=== PATIENT | male | born 1955 | race Caucasian/White ===

== ENCOUNTER 2020-08-07 01:03 | Observation (INO) | payer MEDICARE, OTHER ==
[2020-08-07 01:54] LABS: Basophils # (A) 0.1 k/uL (0-0.2); Basophils % (A) 1 %; Eosinophils # (A) 0.4 k/uL (0-0.7); Eosinophils % (A) 4 %; HCT 45.3 % (39.0-53.0); HGB 14.4 gm/dL (13.0-17.5); Lymphocytes # (A) 2.9 k/uL (1.0-4.8); Lymphocytes % (A) 30 %; MCH 30.5 pg (25.0-35.0); MCHC 31.8 g/dL (31.0-37.0); MCV 95.8 fL (80.0-100.0); Mean Platelet Volume 8.4; Monocytes # (A) 0.7 k/uL (0-1.0); Monocytes % (A) 8 %; Neutrophils # (A) 5.2 k/uL (1.3-7.7); Neutrophils % (A) 55 %; Platelet Count 248 k/uL (150-450); RBC 4.72 m/uL (4.30-5.90); RDW 12.8 % (11.5-15.5); WBC 9.4 k/uL (3.8-10.6)
[2020-08-07 02:11] LABS: Partial Thromboplastin Time 26.3 sec (22.0-30.0)
[2020-08-07 02:13] LABS: ALT 18 U/L (4-49); AST 21 U/L (17-59); African American GFR (CKD) >90 (>60 ml/min/1.73 sqM); Alkaline Phosphatase 51 U/L (38-126); Anion Gap 8 mmol/L; Blood Urea Nitrogen 24 mg/dL (9-20); Calcium 9.5 mg/dL (8.4-10.2); Carbon Dioxide 29 mmol/L (22-30); Chloride 101 mmol/L (98-107); Glucose 125 mg/dL (74-99); Magnesium 1.9 mg/dL (1.6-2.3); Non-African American GFR(CKD) 79 (>60 ml/min/1.73 sqM); Potassium 3.9 mmol/L (3.5-5.1); Sodium 138 mmol/L (137-145); Total Bilirubin 0.4 mg/dL (0.2-1.3)
--- NOTE | 2020-08-07 02:19 | ED ---
Chest Pain HPI - General Chief Complaint: Chest Pain Stated Complaint: Chest Pain Time Seen by Provider: 08/07/20 01:36 Source: patient Mode of arrival: wheelchair Limitations: no limitations - History of Present Illness Initial Comments: Rambo is a previously healthy 65-year-old male who presents the ER today via private vehicle for evaluation of retrosternal chest pain that woke him from sleep. Patient denies any cardiac history he has no history of hypertension, hyperlipidemia, diabetes, no family history of heart disease, he was a smoker but quit over 35 years ago. Patient reports that he was in his usual state of health throughout the day yesterday he went to bed at his usual time. He states that he woke from sleep with a stabbing retrosternal chest pain. Pain is not associated with any nausea or vomiting. He did have some shortness of breath but no diaphoresis or lightheadedness. His encouraged him to come to the ER for further evaluation. - Related Data Allergies Allergy/AdvReac Type Severity Reaction Status Date / Time No Known Allergies Allergy Verified 08/07/20 01:14 Review of Systems ROS Statement: Those systems with pertinent positive or pertinent negative responses have been documented in the HPI. ROS Other: All systems not noted in ROS Statement are negative. EKG Findings - EKG Comments: EKG Findings:: EKG was obtained due to complaint of chest pain, EKG was obtained at 1:24 AM, rate is 72, rhythm is sinus with frequent consecutive PVCs, [place] 174 QRS 104 QTc 444 there appears to be hyperacute T waves in V2 and 3 and 4, no acute ST elevations or depressions no evidence of acute infarction. Past Medical History Past Medical History: No Reported History History of Any Multi-Drug Resistant Organisms: None Reported Past Surgical History: Hernia Repair Past Psychological History: No Psychological Hx Reported Smoking Status: Never smoker Past Alcohol Use History: None Reported Past Drug Use History: None Reported General Exam - General Exam Comments Initial Comments: Physical Exam GENERAL: Patient is well-developed and well-nourished. Patient is nontoxic and well- hydrated and is in no distress. HENT: Normocephalic, Atraumatic. EYES: PERRL, EOMI PULMONARY: Unlabored respirations. No audible rales rhonchi or wheezing was noted. CARDIOVASCULAR: There is a regular rate and rhythm without any murmurs gallops or rubs. ABDOMEN: Soft and nontender with normal bowel sounds. SKIN: Skin is clear with no lesions or rashes and otherwise unremarkable. : Deferred NEUROLOGIC: Patient is alert and oriented x3. Moving all extremities spontaneously MUSCULOSKELETAL: Normal extremities with adequate strength and full range of motion. No lower ex tremity swelling or edema. No calf tenderness. PSYCHIATRIC: Normal psychiatric evaluation. Limitations: no limitations Course Vital Signs 08/07/20 08/07/20 08/07/20 01:10 01:46 03:16 Temperature 98.2 F 98.2 F Pulse Rate 53 L 65 70 Respiratory 19 16 14 Rate Blood Pressure 151/64 141/76 129/74 O2 Sat by Pulse 99 98 Oximetry Chest Pain MDM - MDM The patient was seen and evaluated history is obtained from the patient This 65-year-old gentleman his only risk factor for cardiac disease is age and gender, worsening with retrosternal chest pain and an EKG to has hyperacute T waves and frequent ectopy Patient had ASA prior to arrival Labs and chest x-ray were obtained and resulted with no significant abnormalities however given the patient's age gender and abnormal EKG I do feel he warrants admission to the hospital for further evaluation and possible acute coronary syndrome. Patient is agreeable with this plan. Disposition Clinical Impression: Chest pain Disposition: ADMITTED IP TO THIS HOSP Condition: Stable Is patient prescribed a controlled substance at d/c from ED?: No
[2020-08-07] MEDS ORDERED: HEPARIN SODIUM,PORCINE 5,000 UNIT/ML 1 ML VIAL IV PRN (02:24)
[2020-08-07] MEDS ORDERED: HEPARIN SODIUM,PORCINE 5,000 UNIT/ML 1 ML VIAL IV ONE (02:24)
[2020-08-07] MEDS ORDERED: HEPARIN SOD,PORK IN 0.45% NACL 25,000 UNIT in 0.45% NACL 1 250ML.BAG IV SCH (02:30)
--- NOTE | 2020-08-07 02:31 | XR ---
EXAMINATION TYPE: XR chest 2V DATE OF EXAM: 08/07/2020 COMPARISON: NONE HISTORY: Chest pain TECHNIQUE: 2 views FINDINGS: Heart and mediastinum are normal. Lungs are clear. Diaphragm is normal. There are chest lety ds. Bony thorax is intact. IMPRESSION: Normal chest.
[2020-08-07] MEDS: NITROGLYCERIN OINT 1 INCH/GM PACKET TOPICAL SCH ×4 (03:16→17:55)
[2020-08-07] MEDS: ATORVASTATIN 80 MG TAB PO SCH (08:34)
--- NOTE | 2020-08-07 11:31 | P.HPIM ---
History of Present Illness Chief Complaint: Chest pain Lm is a healthy 65-year-old white male with no medications or known medical problems. He said he awoke with chest pressure midsternal last night. He says the pain was nonradiating. [place] pressure-like. He denied any significant shortness of breath, nausea, vomiting, diarrhea, constipation issues. He has no strong family cardiac disease and he quit smoking 30+ years ago. EKG findings in the emergency room showed sinus bradycardia with occasional PVCs and PACs. This a.m., he denies chest pains only with deeper inspiration. He has a nitroglycerin patch in place. Review of Systems All systems: negative Past Medical History Past Medical History: No Reported History History of Any Multi-Drug Resistant Organisms: None Reported Past Surgical History: Hernia Repair Additional Past Surgical History / Comment(s): gallbladder surgery, sinus surgery, carpal tunnel Past Anesthesia/Blood Transfusion Reactions: No Reported Reaction Past Psychological History: No Psychological Hx Reported Smoking Status: Never smoker Past Alcohol Use History: None Reported Past Drug Use History: None Reported - Past Family History Father Family Medical History: Cancer Additional Family Medical History / Comment(s): lung ca Medications and Allergies Allergies Allergy/AdvReac Type Severity Reaction Status Date / Time No Known Allergies Allergy Verified 08/07/20 01:14 Physical Exam Vitals: Vital Signs Temp Pulse Pulse Resp BP BP Pulse Ox 08/07/20 09:00 98.8 F 64 16 98/58 96 08/07/20 03:18 97.9 F 63 18 124/64 96 08/07/20 03:16 98.2 F 70 14 129/74 98 08/07/20 01:46 65 16 141/76 08/07/20 01:10 98.2 F 53 L 19 151/64 99 Intake and Output 08/06/20 08/07/20 08/07/20 22:59 06:59 14:59 Other: # Voids 0 Weight 80.739 kg GENERAL: Well-appearing, well-nourished and in no acute distress. HEAD: Atraumatic, normocephalic. EYES: Pupils equal round and reactive to light, extraocular movements intact, sclera anicteric, conjunctiva are normal. ENT:nares patent, oropharynx clear without exudates. Moist mucous membranes. NECK: Normal range of motion, supple without lymphadenopathy or JVD, no thyromegaly LUNGS: Breath sounds show minimal crackles right base, no wheezes or rhonchi noted. HEART: Regular rate and rhythm without murmurs, rubs or gallops.S1S2 Normal ABDOMEN: Soft, nontender, normoactive bowel sounds. No guarding, no rebound. No masses appreciated. EXTREMITIES: Normal range of motion, no pitting or edema. No clubbing or c yanosis. NEUROLOGICAL: Cranial nerves II through XII grossly intact. Normal speech, normal gait. PSYCH: Normal mood, normal affect. SKIN: Warm, Dry, normal turgor, no rashes or lesions noted. Results CBC & Chem 7: 08/07/20 01:39 08/07/20 01:39 Labs: Abnormal Lab Results - Last 24 Hours (Table) 08/07/20 08/07/20 Range/Units 01:39 09:37 APTT 53.4 H (22.0-30.0) sec BUN 24 H (9-20) mg/dL Glucose 125 H (74-99) mg/dL Chest x-ray: report reviewed Thrombosis Risk Factor Assmnt - DVT/VTE Prophylaxis DVT/VTE Prophylaxis: Pharmacologic Prophylaxis ordered - Choose All That Apply Any of the Below Risk Factors Present?: No Other Risk Factors: Yes Each Risk Factor Represents 2 Points: Age 61-74 years Other congenital or acquired thrombophilia - If yes, enter type in comment: No Thrombosis Risk Factor Assessment Total Risk Factor Score: 2 Thrombosis Risk Factor Assessment Level: Low Risk Assessment and Plan (1) Abnormal EKG Current Visit: Yes Status: Acute Code(s): R94.31 - ABNORMAL ELECTROCARDIOGRAM [ECG] [EKG] SNOMED Code(s): 599039892 (2) Elevated glucose Current Visit: Yes Status: Acute Code(s): R73.09 - OTHER ABNORMAL GLUCOSE SNOMED Code(s): 15139483 (3) Abnormal lung sounds Current Visit: Yes Status: Acute Code(s): R09.89 - OTH SYMPTOMS AND SIGNS INVOLVING THE CIRC AND RESP SYSTEMS SNOMED Code(s): 35956553498369 (4) Chest pain Current Visit: Yes Status: Acute Code(s): R07.9 - CHEST PAIN, UNSPECIFIED SNOMED Code(s): 81970799 Plan: We will consult cardiology. Repeat chest x-ray. Check hemoglobin A1c regarding his elevated sugar, check a TSH, Most likely the stress test is ordered would not be completed until tomorrow, I'll reorder laboratory studies for the a.m., but if cardiology clears him he may be discharged with planned outpatient follow-up depending on how he is feeling. He will be reevaluated next 24 hours if he is not cleared by cardiology.
--- NOTE | 2020-08-07 12:55 | XR ---
EXAMINATION TYPE: XR chest 2V DATE OF EXAM: 08/07/2020 COMPARISON: 08/07/2020 HISTORY: 65-year-old male right base abnormal lung sounds, chest pain. TECHNIQUE: Frontal and lateral views FINDINGS: The cardiomediastinal silhouette, aorta, and pulmonary vasculature are within normal limits. Lungs an d pleural spaces are clear. IMPRESSION: No acute cardiopulmonary process.
[2020-08-07] MEDS ORDERED: CAFFEINE CITRATE 60 MG/3 ML VIAL IV PRN (14:39)
[2020-08-07] MEDS ORDERED: REGADENOSON 0.4 MG/5 ML SYRINGE IV ONE (14:39)
[2020-08-07] MEDS ORDERED: AMINOPHYLLINE 500 MG/20 ML VIAL IV PRN (14:39)
--- NOTE | 2020-08-07 14:39 | P.CRDCN ---
History of Present Illness Consult date: 08/07/20 Consult reason: chest pain History of present illness: HISTORY OF PRESENTING ILLNESS This is a pleasant 65-year-old male without any prior medical history who presents secondary to chest pain which occurred last night. He admits that it initially felt like a pressure which did improve when he received nitroglycerin and Nitropaste in the emergency department. It has since changed to a discomfort mainly when he takes a deep breath in. No recent fevers, chills, cough. He denies any prior similar episodes. He was concerned due to chest mary n and therefore presented to the emergency department. No associated nausea, diaphoresis or shortness breath. He denies any history of stroke, TIA, heart murmur. He has not seen a engraver copperplate and does not believe he has had prior cardiac workup. No history of heart catheterization. He does not smoke. 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 He does go on walks and bike rides with his . He was placed on a heparin drip for apparent hyperacute T waves by the emergency department. He states that normally his cholesterol is well controlled when he gets it checked by his primary care doctor. Currently he denies any chest pain. DIAGNOSTICS EKG reveals sinus rhythm with frequent PACs, normal axis, no significant ST or T-wave abnormalities Chest xray no acute process. Laboratory reviewed, white blood cell count 9.4, hemoglobin 14.4, platelets 248, creatinine 1.0, troponin negative 3, proBNP 31, TSH 4.48. Current cardiac medications include aspirin 325 mg daily, Lipitor 80 mg daily. REVIEW OF SYSTEMS At the time of my exam: CONSTITUTIONAL: Denies fever or chills. CARDIOVASCULAR: +chest pain, no shortness of breath, orthopnea, PND or palpitations. RESPIRATORY: Denies cough. GASTROINTESTINAL: Denies abdominal pain, diarrhea, constipation, nausea or vomiting. MUSCULOSKELETAL: Denies myalgias. NEUROLOGIC: Denies numbness, tingling or weakness. ENDOCRINE: Denies fatigue, weight change, polydipsia or polyurina. GENITOURINARY: Denies burning, hematuria or urgency with micturation. HEMATOLOGIC: Denies history of anemia or bleeding. PHYSICAL EXAMINATION Blood pressure 98/58 heart rate 64 afebrile and maintaining oxygen saturation on room air. CONSTITUTIONAL: No apparent distress. HEENT: Head is normocephalic. Pupils are equal, round. Sclerae anicteric. Mucous membranes of the mouth are moist. No JVD. + Bilateral carotid bruit. CHEST EXAMINATION: Lungs are clear to auscultation. No chest wall tenderness is noted on palpation or with deep breathing. HEART EXAMINATION: Regular rate and rhythm. Occasional PACs, ? Split S2, +3/6 systolic murmur mainly at the left upper sternal border, no gallops or rub. ABDOMEN: Soft, nontender. Positive bowel sounds. EXTREMITIES: 2+ peripheral pulses, no lower extremity edema and no calf tenderness. NEUROLOGIC EXAMINATION: Patient is awake, alert and oriented x3. ASSESSMENT 1. Atypical chest pain, however initially improved with nitroglycerin. Since the ER however it seems more pleuritic worsening with deep breaths in. Troponin negative 3. 2. Systolic murmur 3. Bilateral carotid bruit 4. PACs PLAN We discussed options and patient would like to stay and have a stress test performed. We will check a nuclear stress test as he is getting pain with any deep inspirations and do not feel he could reach target heart rate on a treadmill. Additionally we will check a 2-D echo to evaluate murmur. Also patient has bilateral carotid bruit and we will check that if able in the hospital however this may be performed on an outpatient basis. Past Medical History Past Medical History: No Reported History History of Any Multi-Drug Resistant Organisms: None Reported Past Surgical History: Hernia Repair Additional Past Surgical History / Comment(s): gallbladder surgery, sinus surgery, carpal tunnel Past Anesthesia/Blood Transfusion Reactions: No Reported Reaction Past Psychological History: No Psychological Hx Reported Smoking Status: Never smoker Past Alcohol Use History: None Reported Past Drug Use History: None Reported - Past Family History Father Family Medical History: Cancer Additional Family Medical History / Comment(s): lung ca Medications and Allergies Home Medications Medication Instructions Recorded Confirmed Type No Known Home Medications 08/07/20 08/07/20 History Allergies Allergy/AdvReac Type Severity Reaction Status Date / Time No Known Allergies Allergy Verified 08/07/20 12:18 Physical Exam Vitals: Vital Signs Temp Pulse Pulse Resp BP BP Pulse Ox 08/07/20 09:00 98.8 F 64 16 98/58 96 08/07/20 03:18 97.9 F 63 18 124/64 96 08/07/20 03:16 98.2 F 70 14 129/74 98 08/07/20 01:46 65 16 141/76 08/07/20 01:10 98.2 F 53 L 19 151/64 99 Intake and Output 08/06/20 08/07/20 08/07/20 22:59 06:59 14:59 Intake Total 500 Balance 500 Intake: Oral 500 Other: # Voids 0 2 Weight 80.739 kg Results 08/07/20 01:39 08/07/20 01:39 Cardiac Enzymes 08/07/20 08/07/20 08/07/20 Range/Units 01:39 01:39 05:23 AST 21 (17-59) U/L Troponin I <0.012 <0.012 (0.000-0.034) ng/mL 08/07/20 Range/Units 09:37 AST (17-59) U/L Troponin I <0.012 (0.000-0.034) ng/mL Coagulation 08/07/20 08/07/20 Range/Units 01:39 09:37 PT 10.0 (9.0-12.0) sec APTT 26.3 53.4 H (22.0-30.0) sec CBC 08/07/20 Range/Units 01:39 WBC 9.4 (3.8-10.6) k/uL RBC 4.72 (4.30-5.90) m/uL Hgb 14.4 (13.0-17.5) gm/dL Hct 45.3 (39.0-53.0) % Plt Count 248 (150-450) k/uL Comprehensive Metabolic Panel 08/07/20 Range/Units 01:39 Sodium 138 (137-145) mmol/L Potassium 3.9 (3.5-5.1) mmol/L Chloride 101 (98-107) mmol/L Carbon Dioxide 29 (22-30) mmol/L BUN 24 H (9-20) mg/dL Creatinine 1.00 (0.66-1.25) mg/dL Glucose 125 H (74-99) mg/dL Calcium 9.5 (8.4-10.2) mg/dL AST 21 (17-59) U/L ALT 18 (4-49) U/L Alkaline Phosphatase 51 (38-126) U/L Total Protein 7.0 (6.3-8.2) g/dL Albumin 4.0 (3.5-5.0) g/dL Current Medications Generic Name Dose Route Start Last Admin Trade Name Ziyad PRN Reason Stop Dose Admin Aspirin 325 mg 08/08/20 09:00 Aspirin PO DAILY [facility] Atorvastatin Calcium 80 mg 08/07/20 09:00 08/07/20 08:34 Lipitor PO 80 mg DAILY CATRACHITO Administration Heparin Sodium (Porcine) 0 unit 08/07/20 02:24 Heparin IV PER PROTOCOL PRN Low PTT Protocol Nitroglycerin 1 inch 08/07/20 03:00 08/07/20 06:56 Nitro-Bid Oint TOPICAL Not Given Q6HR CATRACHITO Intake and Output 08/06/20 08/07/20 08/07/20 22:59 06:59 14:59 Intake Total 500 Balance 500 Intake: Oral 500 Other: # Voids 0 2 Weight 80.739 kg 08/07/20 01:39 08/07/20 01:39
--- NOTE | 2020-08-07 15:24 | US ---
EXAMINATION TYPE: US carotid duplex BILAT DATE OF EXAM: 08/07/2020 COMPARISON: NONE CLINICAL HISTORY: 65-year-old male bilateral carotid bruit. Chest pain. TECHNIQUE: Carotid duplex ultrasound examination. Indirect Doppler criteria was utilized. FINDINGS: EXAM MEASUREMENTS: RIGHT: Peak Systolic Velocity (PSV) cm/sec ----- Right CCA: 92.4 ----- Right ICA: 145.1 ----- Right ECA: 176.5 ICA/CCA ratio: 1.6 RIGHT: End Diastole cm/sec ----- Right CCA: 23.8 ----- Right ICA: 18.9 ----- Right ECA: 0 LEFT: Peak Systolic Velocity (PSV) cm/sec ----- Left CCA: 105.6 ----- Left ICA: 119.4 ----- Left ECA: 119.4 ICA/CCA ratio: 1.1 LEFT: End Diastole cm/sec ----- Left CCA: 16.9 ----- Left ICA: 36.6 ----- Left ECA: 0 VERTEBRALS (direction of flow): Right Vertebral: Antegrade Left Vertebral: Antegrade Rhythm: Normal No significant stenosis seen IMPRESSION: No hemodynamically significant internal carotid artery stenosis on either side. Criteria for Assigning % of Stenosis / Diameter reduction (Estimation based on the indirect measurements of the internal carotid artery velocities (ICA PSV). 1. Normal (no stenosis)=ICA PSV < 125 cm/s: ratio < 2.0: ICA EDV<40 cm/s. 2. Less than 50% stenosis=ICA PSV < 125 cm/s: ratio < 2.0: ICA EDV<40 cm/s. 3. 50 to 69% stenosis=ICA PSV of 125 to 230 cm/s: ration 2.0 ? 4.0: ICA EDV 40-100 cm/s. 4. Greater than 70% stenosis to near occlusion= ICA PSV > 230 cm/s: ratio > 4.0: ICA EDV > 100 cm/s. 5. Near occlusion= ICA PSV velocities may be low or undetectable: variable ratio and ICA EDV. 6. Total occlusion=unable to detect flow.
[2020-08-07] MEDS ORDERED: ACETAMINOPHEN TAB 325 MG TAB PO PRN (16:17)
[2020-08-07] MEDS: KETOROLAC 15 MG/ML 1 ML VIAL IVP PRN (16:40)
[2020-08-07 19:49] LABS: Hemoglobin A1C 5.5 % (4.0-6.0)
[2020-08-08] MEDS: NITROGLYCERIN OINT 1 INCH/GM PACKET TOPICAL SCH ×2 (02:07→06:13)
[2020-08-08] MEDS: KETOROLAC 15 MG/ML 1 ML VIAL IVP PRN (02:40)
[2020-08-08 06:31] LABS: Basophils % (A) 0 %; Eosinophils # (A) 0.1 k/uL (0-0.7); Eosinophils % (A) 1 %; HGB 13.3 gm/dL (13.0-17.5); Lymphocytes # (A) 1.5 k/uL (1.0-4.8); Lymphocytes % (A) 16 %; MCH 30.5 pg (25.0-35.0); MCHC 31.8 g/dL (31.0-37.0); Mean Platelet Volume 8.1; Monocytes # (A) 0.8 k/uL (0-1.0); Monocytes % (A) 8 %; Neutrophils # (A) 7.2 k/uL (1.3-7.7); Neutrophils % (A) 74 %; Platelet Count 212 k/uL (150-450); RBC 4.38 m/uL (4.30-5.90); WBC 9.7 k/uL (3.8-10.6)
[2020-08-08 06:45] LABS: African American GFR (CKD) >90 (>60 ml/min/1.73 sqM); Anion Gap 6 mmol/L; Blood Urea Nitrogen 17 mg/dL (9-20); Calcium 8.9 mg/dL (8.4-10.2); Carbon Dioxide 27 mmol/L (22-30); Chloride 105 mmol/L (98-107); Cholesterol 112 mg/dL (<200); Glucose 101 mg/dL (74-99); HDL Cholesterol 36 mg/dL (40-60); LDL Cholesterol,Calculated 69 mg/dL (0-99); Non-African American GFR(CKD) >90 (>60 ml/min/1.73 sqM); Potassium 4.5 mmol/L (3.5-5.1); Sodium 138 mmol/L (137-145); Triglycerides 36 mg/dL (<150)
[2020-08-08 08:44] VITALS: BP 126/68; PULSE 70; RESP 16; TEMP 98.4
[2020-08-08] MEDS ORDERED: ASPIRIN 325 MG TAB PO SCH (09:00)
[2020-08-08] MEDS: ATORVASTATIN 80 MG TAB PO SCH (09:00)
--- NOTE | 2020-08-08 10:44 | P.PN ---
Subjective HISTORY OF PRESENTING ILLNESS This is a pleasant 65-year-old male without any prior medical history who presents secondary to chest pain. Blood pressure 126/68 heart rate 70 afebrile maintaining oxygen saturation on room air. Laboratory data reviewed, CBC unremarkable, ESR 29, sodium 138, potassium 4.5, creatinine 0.81, LDL 69 and HDL 36. Bilateral carotid Doppler reveals no hemodynamically significant internal carotid artery stenosis bilaterally. For the most part his chest pain has resolved however he states if he takes in a very deep breath he can reproduce the pain. PHYSICAL EXAMINATION CONSTITUTIONAL: No apparent distress. HEENT: Head is normocephalic. Pupils are equal, round. Sclerae anicteric. Mucous membranes of the mouth are moist. No JVD. + Bilateral carotid bruit. CHEST EXAMINATION: Lungs are clear to auscultation. No chest wall tenderness is noted on palpation or with deep breathing. HEART EXAMINATION: Irregular rate and rhythm. Systolic ejection murmur at the left sternal border, no gallops or rubs. EXTREMITIES: 2+ peripheral pulses, no lower extremity edema and no calf tenderness. ASSESSMENT Atypical chest pain, however initially improved with nitroglycerin. Since the ER however it seems more pleuritic worsening with deep breaths in. Troponin negative 3. Systolic murmur, pt states his brother also has a murmur Bilateral carotid bruit PACs PLAN Proceed with echocardiogram and stress test as previously ordered. Nurse Practitioner note has been reviewed, I agree with a documented findings and plan of care. Patient was seen and examined. Objective - Vital Signs Vital signs: Vital Signs Temp 98.4 F 08/08/20 08:42 Pulse 70 08/08/20 08:42 Resp 16 08/08/20 08:42 BP 126/68 08/08/20 08:42 Pulse Ox 97 08/08/20 08:42 Intake & Output 08/07/20 08/08/20 08/08/20 18:59 06:59 18:59 Intake Total 500 Balance 500 Intake: Oral 500 Other: # Voids 2 1 - Labs CBC & Chem 7: 08/08/20 05:41 08/08/20 05:41 Labs: Abnormal Lab Results - Last 24 Hours (Table) 08/07/20 08/08/20 Range/Units 17:47 05:41 ESR 29 H (0-15) mm/hr Glucose 101 H (74-99) mg/dL HDL Cholesterol 36 L (40-60) mg/dL
--- NOTE | 2020-08-08 11:00 | ECHOF ---
Referral Reason:chest pain MEASUREMENTS -------- HEIGHT: 185.4 cm WEIGHT: 80.7 kg BP: 104/59 RVIDd: 3.4 cm (< 3.3) IVSd: 1.1 cm (0.6 - 1.1) LVIDd: 4.2 cm (3.9 - 5.3) LVPWd: 1.3 cm (0.6 - 1.1) IVSs: 1.6 cm LVIDs: 3.1 cm LVPWs: 1.7 cm LAESV Index (A-L): 27.61 ml/m Ao Diam: 3.0 cm (2.0 - 3.7) AV Cusp: 1.7 cm (1.5 - 2.6) MV EXCURSION: 21.946 mm (> 18.000) MV EF SLOPE: 140 mm/s (70 - 150) EPSS: 0.2 cm MV E Liam: 1.01 m/s MV DecT: 216 ms MV A Liam: 1.04 m/s MV E/A Ratio: 0.97 RAP: 5.00 mmHg RVSP: 30.14 mmHg FINDINGS -------- This was a technically adequate study. The left ventricular size is normal. There is mild concentric left ventricular hypertrophy. Overa ll left ventricular systolic function is normal with, an EF between 55 - 60 %. The diastolic fillin g pattern is normal for the age of the patient 10.60. The right ventricle is mildly enlarged. Normal LA size by volume 22+/-6 ml/m2. The right atrium is mildly enlarged. Interatrial and interventricular septum intact. There is no evidence of aortic regurgitation. There is no evidence of aortic stenosis. There is trace mitral regurgitation. Mild tricuspid regurgitation present. There is no evidence of pulmonary hypertension. The right v entricular systolic pressure, as measured by Doppler, is 30.14mmHg. There is no pulmonic regurgitation present. The aortic root size is normal. Normal inferior vena cava with normal inspiratory collapse consistent with estimated right atrial pre ssure of 5 mmHg. There is no pericardial effusion. CONCLUSIONS -------- 1. The left ventricular size is normal. 2. There is mild concentric left ventricular hypertrophy. 3. Overall left ventricular systolic function is normal with, an EF between 55 - 60 %. 4. The diastolic filling pattern is normal for the age of the patient 10.60 5. The right ventricle is mildly enlarged. 6. The right atrium is mildly enlarged. 7. There is trace mitral regurgitation. 8. Mild tricuspid regurgitation present. BOBBIN WINDER: Kim Bishop RDCS
--- NOTE | 2020-08-08 12:02 | P.STRESS ---
- Stress Test Note Stress Test Results/Findings: Exam Performed: NM stress lexiscan cardiolite Exam Date: 08/08/20 Reason for Exam: CHEST PAIN Height: 6 ft 1 in Weight: 80.74 kg Protocol: LEXISCAN Stage: NA Duration of Exercise: NA Resting Heart Rate: 97 Resting Blood Pressure: 122/74 Maximum Achieved Heart Rate: 116 Maximum Achieved Blood Pressure: 137/63 85% PMHR: NA 100% PMHR: NA METS: NA Technologist Comment: Stress Test Results/Findings: This is a [id number] gentleman with history of smoking who was admitted to the hospital with complaints of chest pain. Stress data: Baseline EKG showed sinus rhythm with frequent APCs. Blood pressure at rest is 122/74 with a pulse rate of 97. A standard dose of Lexiscan was infused. EKGs taken during and after the infusion did not reveal any significant changes from the baseline. Patient continued to have PACs and PVCs. No complaints of any chest pain. Final impression: #1. Negative Lexiscan stress test #2. Report on the nuclear images to be given by the radiologist
--- NOTE | 2020-08-08 12:26 | NM ---
EXAMINATION TYPE: NM stress lexiscan cardiolite DATE OF EXAM: 08/08/2020 COMPARISON: NONE HISTORY: History of tobacco use in the past presents with chest pain. TECHNIQUE: After the intravenous administration of 9.0 mCi Tc 99m Sestamibi - Cardiolite resting SPE CT images acquired 45 minutes post injection. The patient received 0.4mg Lexiscan, 26.8 mCi Tc 99m Sestamibi - Stress images obtained [address] injection FINDINGS: Review of stress and rest SPECT images demonstrates no distinct perfusion abnormality. Gated analysi s shows normal wall motion with an estimated left ventricular ejection fraction of greater than 70 % . IMPRESSION: No scintigraphic evidence for reversible ischemia.
--- NOTE | 2020-08-08 14:39 | EST ---
Stress Test Results/Findings: Exam Performed: NM stress lexiscan cardiolite Exam Date: 08/08/20 Reason for Exam: CHEST PAIN Height: 6 ft 1 in Weight: 80.74 kg Protocol: LEXISCAN Stage: NA Duration of Exercise: NA Resting Heart Rate: 97 Resting Blood Pressure: 122/74 Maximum Achieved Heart Rate: 116 Maximum Achieved Blood Pressure: 137/63 85% PMHR: NA 100% PMHR: NA METS: NA Technologist Comment: Stress Test Results/Findings: This is a [id number] gentleman with history of smoking who was admitted to the hospital with complaints of chest pain. Stress data: Baseline EKG showed sinus rhythm with frequent APCs. Blood pressure at rest is 122/74 with a pulse rate of 97. A standard dose of Lexiscan was infused. EKGs taken during and after the infusion did not reveal any significant changes from the baseline. Patient continued to have PACs and PVCs. No complaints of any chest pain. Final impression: #1. Negative Lexiscan stress test #2. Report on the nuclear images to be given by the radiologist COLLIN
--- NOTE | 2020-08-09 13:37 | P.DS ---
Providers Date of admission: 08/07/20 02:41 Expected date of discharge: 08/09/20 Attending physician: Jonel Wise Consults: 08/07/20 02:41 Consult Physician Urgent Consulting Provider: Ray Reynoso Consult Reason/Comments: chest pain, ectopy, hyperacute T waves Do you want consulting provider notified?: Yes, Notify in am Primary care physician: Jonel Wise Hospital Course: Final Diagnoses: Atypical Chest pain reproducible with deep inspiration, acute coronary syndrome ruled out as per cardiology. Lexiscan stress test reported as negative for reversible ischemia/negative. Elevated sed rate, Possible mild pericarditis or mild pleuritis, discharged on Anaprox DS. Declined coronavirus testing. Systolic murmur Bilateral carotid bruit, bilateral carotid Doppler reported no bilateral hemodynamic significant stenosis. Elevated fasting glucose, hemoglobin A1c 5.5 Hospital course: Mr. Rambo Dickey is a healthy 65-year-old white male with no medications or known medical problems. He said he awoke with chest pressure midsternal last night. He says the pain was nonradiating. [place] pressure-like. He denied any significant shortness of breath, nausea, vomiting, diarrhea, constipation issues. He has no strong family cardiac disease and he quit smoking 30+ years ago. EKG findings in the emergency room showed sinus bradycardia with occasional PVCs and PACs. This a.m., he denies chest pains only with deeper inspiration. He has a nitroglycerin patch in place. Evaluated by cardiology, underwent Lexiscan stress test-reported as negative. Echo reported normal LV function, EF 55-60%, mildly enlarged right ventricle and right atrium, trace mitral regurgitation, mild tricuspid regurgitation. Carotid Doppler reported no bilateral hemodynamic significant stenosis. Cleared by cardiology for discharge. Given clinical presentation of atypical chest pain reproduced with deep inspiration accompanied by elevated sed rate, will discharge on Anaprox DS twice a day 10 days for potential mild pericarditis or mild pleuritis. Patient is being discharged home in a stable condition with guarded prognosis. The impression and plan of care has been dictated as directed. : I performed a history and examination of this patient, discussed the same with the dictator. I agree with the dictator's note ,documented as a scribe. Any additional findings or plans will be noted. Patient Condition at Discharge: Stable Plan - Discharge Summary Discharge Rx Participant: No New Discharge Prescriptions: New Naproxen Sodium [Anaprox DS] 550 mg PO Q12HR #20 tab Famotidine [Pepcid] 20 mg PO BID #20 tablet Discharge Medication List Famotidine [Pepcid] 20 mg PO BID #20 tablet 08/08/20 [Rx] Naproxen Sodium [Anaprox DS] 550 mg PO Q12HR #20 tab 08/08/20 [Rx] Follow up Appointment(s)/Referral(s): Dawson Goel DO [STAFF PHYSICIAN] - 2 Weeks (Per Suzy the office will call you with a follow up appointment.) Jonel Wise MD [Primary Care Provider] - 08/11/20 8:30 am Patient Instructions/Handouts: Chest Pain (GEN), Acute Pericarditis (GEN) Activity/Diet/Wound Care/Special Instructions: Pending stress test, final DC recommendations and clearance from cardiology. Confirm cardiology follow-up appointment prior to discharge. Pepcid 20 mg bid x10 days Discharge Disposition: HOME SELF-CARE
== END 2020-08-08 13:53 | disposition home or self-care (01) ==
LOC: EC 01:03 → 3NCARDOBS 02:41
PROVIDERS: ADMIT Family Medicine; ATTEND Family Medicine
DX: R07.2 Precordial pain (principal); R00.1 Bradycardia, unspecified; I49.3 Ventricular premature depolarization; R73.01 Impaired fasting glucose; Z79.82 Long term (current) use of aspirin; Z79.899 Other long term (current) drug therapy; Z80.1 Family history of malignant neoplasm of trachea, bronchus and lung
CPT/HCPCS: 93005 ×2; 96375; 96376 ×2; 96365; 99285; 36415; 93017; 93306; 83880; 80061; 80053; 80048; 85652; 84443; 83735; 84484; 85025 ×2; 85610; 85730; 83036; 71046; 93880; 78452; G0378 ×2; A9500; J1644 ×2; J2785; J1885 ×2

== ENCOUNTER 2024-05-14 06:24 | Emergency (ER) | payer MEDICARE, OTHER ==
[2024-05-14] MEDS: PANTOPRAZOLE 40 MG/10 ML VIAL IVP STA (09:37)
[2024-05-14] MEDS: ONDANSETRON 4 MG/2 ML VIAL IVP STA (09:37)
[2024-05-14] MEDS: SODIUM CHLORIDE 0.9% 2,000 ML IV STA (09:38)
[2024-05-14 09:51] LABS: Basophils % (A) 1 %; Eosinophils % (A) 1 %; HCT 46.4 % (39.0-53.0); HGB 15.1 gm/dL (13.0-17.5); Lymphocytes # (A) 0.9 k/uL (1.0-4.8); Lymphocytes % (A) 17 %; MCH 30.8 pg (25.0-35.0); MCHC 32.6 g/dL (31.0-37.0); MCV 94.3 fL (80.0-100.0); Mean Platelet Volume 8.6; Monocytes # (A) 0.6 k/uL (0-1.0); Monocytes % (A) 13 %; Neutrophils # (A) 3.2 k/uL (1.3-7.7); Neutrophils % (A) 65 %; Platelet Count 190 k/uL (150-450); RBC 4.92 m/uL (4.30-5.90); RDW 12.3 % (11.5-15.5); WBC 4.9 k/uL (3.8-10.6)
[2024-05-14 10:02] LABS: ALT 24 U/L (4-49); AST 24 U/L (17-59); African American GFR (CKD) >90 (>60 ml/min/1.73 sqM); Albumin 3.8 g/dL (3.5-5.0); Alkaline Phosphatase 54 U/L (38-126); Amylase 48 U/L (30-110); Anion Gap 8 mmol/L; Blood Urea Nitrogen 9 mg/dL (9-20); Calcium 8.8 mg/dL (8.4-10.2); Carbon Dioxide 30 mmol/L (22-30); Chloride 95 mmol/L (98-107); Glucose 118 mg/dL (74-99); INR 1.2 (<1.2); Lipase 60 U/L (23-300); Non-African American GFR(CKD) >90 (>60 ml/min/1.73 sqM); Partial Thromboplastin Time 26.1 sec (22.0-30.0); Potassium 3.3 mmol/L (3.5-5.1); Prothrombin Time 12.8 sec (10.0-12.5); Sodium 133 mmol/L (137-145); Total Bilirubin 0.7 mg/dL (0.2-1.3); Total Protein 6.8 g/dL (6.3-8.2)
[2024-05-14 10:51] LABS: Appearance,Urine Clear (Clear); Bilirubin,Urine Negative (Negative); Blood,Urine Trace (Negative); Color,Urine Yellow; Glucose,Urine (UA) Negative (Negative); Ketones,Urine Negative (Negative); Leukocyte Esterase,Urine Negative (Negative); Mucus,Urine Occasional /hpf; Nitrite,Urine Negative (Negative); Protein,Urine 1+ (Negative); RBC,Urine 4 /hpf (0-5); Specific Gravity,Urine 1.018 (1.001-1.035); Urobilinogen,Urine <2.0 mg/dL (<2.0); WBC,Urine 1 /hpf (0-5)
[2024-05-14] MEDS: POTASSIUM CHLORIDE ER 20 MEQ TAB.ER PO STA (11:16)
--- NOTE | 2024-05-14 11:30 | CT ---
EXAMINATION TYPE: CT abdomen pelvis w con DATE OF EXAM: 05/14/2024 COMPARISON: HISTORY: abdominal pain, diarrhea CT DLP: 839.7 mGycm Automated exposure control for dose reduction was used. CONTRAST: CT scan of the abdomen pelvis is performed with IV Contrast, patient injected with 100ml mL of Isovue 300. FINDINGS- LUNG BASES- basilar atelectasis or scarring. LIVER/GB- numerous hepatic cysts. PANCREAS- No gross abnormality is seen. SPLEEN- No gross abnormality is seen. ADRENALS- lateral adrenal thickening or adenoma. KIDNEYS/BLADDER-no hydronephrosis. No suspicious nondistended clinical statement mild cystitis. BOWEL- prominent bowel loops are seen with fluid-filled distended right colon. There appears to be w all thickening involving the descending colon and sigmoid colon. Would favor a colitis over a mucosal lesion or diverticulitis. A follow-up to resolution recommended. There are normal-appearing appendix . LYMPH NODES- lymph nodes are seen in the right abdomen which are borderline possibly reactive but sh ould be followed clinically. OSSEOUS STRUCTURES- hypertrophic and degenerative changes spine. OTHER- aorta normal caliber. IMPRESSION- 1. Thickened wall the left colon and sigmoid colon favor colitis over mucosal lesion or diverticuliti s follow-up to resolution recommended. Nondistended fluid filled transverse colon and right colon lik jyoti reactive. 2. Nonspecific right lower quadrant borderline adenopathy possibly reactive.
--- NOTE | 2024-05-14 12:12 | ED ---
General Adult HPI - General Chief complaint: Nausea/Vomiting/Diarrhea Stated complaint: Diarrhea Time Seen by Provider: 05/14/24 08:50 Source: patient, RN notes reviewed, old records reviewed Mode of arrival: ambulatory Limitations: no limitations - History of Present Illness Initial comments: Patient is a 68-year-old male who presents emergency department complaining of diarrhea for 5 days. States he has had numerous episodes per day of light brown or watery diarrhea. No known sick contacts other than his who has since gotten over it. Endorses some nausea and nonspecific abdominal discomfort but no swapnil pain. No history of significant abdominal surgeries but states he did have his gallbladder out previously. Also has a history of diverticulitis. Presents for further evaluation. No abdominal pain. Just diarrhea. - Related Data Previous Rx's Medication Instructions Recorded Famotidine [Pepcid] 20 mg PO BID #20 tablet 08/08/20 Naproxen Sodium [Anaprox DS] 550 mg PO Q12HR #20 tab 08/08/20 Amoxic-Pot Clav 875-125Mg 1 tab PO Q12HR 10 Days #20 tab 05/14/24 [Augmentin 875-125] Allergies Allergy/AdvReac Type Severity Reaction Status Date / Time No Known Allergies Allergy Verified 05/14/24 06:41 Review of Systems ROS Statement: Those systems with pertinent positive or pertinent negative responses have been documented in the HPI. Review of Systems: CONST: Denies fever EYES: Denies blurry vision ENT: Denies nasal congestion C/V: Denies Chest pain RESP: Denies shortness of breath GI: Denies abdominal pain : Denies dysuria SKIN: Denies rash. MSK: Denies joint pain. NEURO: Denies headache ROS Other: All systems not noted in ROS Statement are negative. Past Medical History Past Medical History: No Reported History History of Any Multi-Drug Resistant Organisms: None Reported Past Surgical History: Hernia Repair Additional Past Surgical History / Comment(s): gallbladder surgery, sinus surgery, carpal tunnel Past Anesthesia/Blood Transfusion Reactions: No Reported Reaction Past Psychological History: No Psychological Hx Reported Smoking Status: Never smoker Past Alcohol Use History: None Reported Past Drug Use History: None Reported - Past Family History Father Family Medical History: Cancer Additional Family Medical History / Comment(s): lung ca General Exam - General Exam Comments Initial Comments: General: Appears in no acute distress. HEAD: Normal with no signs of head trauma. EYES: EOMI ENT: Hearing grossly intact, normal oropharynx. RESPIRATORY: Clear breath sounds bilaterally. No wheezes, rales, or rhonchi. C/V: Regular rate and rhythm. S1 and S2 auscultated, peripheral pulses 2+ and intact throughout ABD: Abd is soft, nontender, nondistended EXT: no obvious deformity SKIN: No rashes or lesions observed on exposed skin. NEURO: Alert and oriented x 4. Limitations: no limitations Course Vital Signs 05/14/24 05/14/24 05/14/24 06:39 11:01 12:25 Temperature 98.7 F 97.3 F L Pulse Rate 67 62 54 L Respiratory 18 16 18 Rate Blood Pressure 132/68 115/55 119/63 O2 Sat by Pulse 95 99 97 Oximetry Medical Decision Making - Medical Decision Making Was pt. sent in by a medical professional or institution (, PA, APRON WORKER, urgent care, hospital, or senior living...) When possible be specific @ -No Did you speak to anyone other than the patient for history (EMS, parent, family, police, friend...)? What history was obtained from this source @ -No Did you review nursing and triage notes (agree or disagree)? Why? @ -I reviewed and agree with nursing and triage notes Were old charts reviewed (outside hosp., previous admission, EMS record, old EKG, old radiological studies, urgent care reports/EKG's, senior living records)? Report findings @ -No old charts were reviewed Differential Diagnosis (chest pain, altered mental status, abdominal pain women, abdominal pain men, vaginal bleeding, weakness, fever, dyspnea, syncope, headache, dizziness, GI bleed, back pain, seizure, CVA, palpatations, mental health, musculoskeletal)? @ -Diverticulitis, diarrhea, dehydration, electrolyte abnormality. This list is not all inclusive. EKG interpreted by me (3pts min.). @ -None done X-rays interpreted by me (1pt min.). @ -None done CT interpreted by me (1pt min.). @ -CT abdomen pelvis positive for colitis but no evidence of diverticulitis. U/S interpreted by me (1pt. min.). @ -None done What testing was considered but not performed or refused? (CT, X-rays, U/S, labs)? Why? @ -None What meds were considered but not given or refused? Why? @ -None Did you discuss the management of the patient with other professionals (professionals i.e. , PA, APRON WORKER, lab, RT, psych nurse, community mental health social worker, animal therapist, teacher, probation and parole officer, counter caser)? Give summary @ -No Was smoking cessation discussed for >3mins.? @ -No Was critical care preformed (if so, how long)? @ -No Were there social determinants of health that impacted care today? How? (Homelessness, low income, unemployed, alcoholism, drug addiction, transportation, low edu. Level, literacy, decrease access to med. care, usp, rehab)? @ -No Was there de-escalation of care discussed even if they declined (Discuss DNR or withdrawal of care, Hospice)? DNR status @ -No What co-morbidities impacted this encounter? (DM, HTN, Smoking, COPD, CAD, Cancer, CVA, ARF, Chemo, Hep., AIDS, mental health diagnosis, sleep apnea, morbid obesity)? @ -None Was patient admitted / discharged? Hospital course, mention meds given and route, prescriptions, significant lab abnormalities, going to OR and other pertinent info. @ -Patient presents with 5 days of diarrhea. Family members with similar complaints Symptoms resolved. He is improved today but is still having symptoms when to be reevaluated. No abdominal pain. Nonbloody diarrhea. Presents for further evaluation. Vital signs within acceptable limits. He will be given a 1 L fluid bolus as well as a dose of IV Protonix and Zofran. Patient was in agreement this plan. Vital signs within acceptable limits. Laboratory studies remarkable for mild hypokalemia and patient received a dose of potassium for this. CT showed colitis but no evidence of diverticulitis. On reevaluation, patient is feeling improved. We discussed workup. I believe it is safer to be discharged home with pain. With his history of diverticulitis, I will empirically prescribe Augmentin to be taken and started in 4 to 5 days if symptoms do not improve. Or if symptoms worsen. Patient was in agreement this plan. Discussed brat diet. Discussed hydration. I will provide the patient with a prescription for Augmentin. I instructed the patient to follow up with their PCP in the next 1-3 days.. I explained that the patient should return to the emergency department if they experience any worsening symptoms. Strict return precautions were discussed with the patient. The patient expressed understanding of these instructions. I answered all questions that the patient had. The patient was discharged home in good condition with their prescriptions and follow up information. Undiagnosed new problem with uncertain prognosis? @ -No Drug Therapy requiring intensive monitoring for toxicity (Heparin, Nitro, Insulin, Cardizem)? @ -No Were any procedures done? @ -No Diagnosis/symptom? @ -Colitis, diarrhea, hypokalemia Acute, or Chronic, or Acute on Chronic? @ -Acute Uncomplicated (without systemic symptoms) or Complicated (systemic symptoms)? @ -Uncomplicated Side effects of treatment? @ -No Exacerbation, Progression, or Severe Exacerbation? @ -No Poses a threat to life or bodily function? How? (Chest pain, [place], [place], pneumonia, PE, COPD, DKA, ARF, appy, cholecystitis, CVA, Diverticulitis, Homicidal, Suicidal, threat to staff... and all critical care pts) @ -Unlikely - Lab Data Result diagrams: 05/14/24 09:01 05/14/24 09:01 Lab Results 05/14/24 05/14/24 05/14/24 Range/Units 09:01 09:01 09:01 WBC 4.9 (3.8-10.6) k/uL RBC 4.92 (4.30-5.90) m/uL Hgb 15.1 (13.0-17.5) gm/dL Hct 46.4 (39.0-53.0) % MCV 94.3 (80.0-100.0) fL MCH 30.8 (25.0-35.0) pg MCHC 32.6 (31.0-37.0) g/dL RDW 12.3 (11.5-15.5) % Plt Count 190 (150-450) k/uL MPV 8.6 Neutrophils % 65 % Lymphocytes % 17 % Monocytes % 13 % Eosinophils % 1 % Basophils % 1 % Neutrophils # 3.2 (1.3-7.7) k/uL Lymphocytes # 0.9 L (1.0-4.8) k/uL Monocytes # 0.6 (0-1.0) k/uL Eosinophils # 0.0 (0-0.7) k/uL Basophils # 0.0 (0-0.2) k/uL PT 12.8 H (10.0-12.5) sec INR 1.2 H (<1.2) APTT 26.1 (22.0-30.0) sec Sodium 133 L (137-145) mmol/L Potassium 3.3 L (3.5-5.1) mmol/L Chloride 95 L (98-107) mmol/L Carbon Dioxide 30 (22-30) mmol/L Anion Gap 8 mmol/L BUN 9 (9-20) mg/dL Creatinine 0.76 (0.66-1.25) mg/dL Est GFR (CKD-EPI)AfAm >90 (>60 ml/min/1.73 sqM) Est GFR (CKD-EPI)NonAf >90 (>60 ml/min/1.73 sqM) Glucose 118 H (74-99) mg/dL Plasma Lactic Acid Nitin (0.7-2.0) mmol/L Calcium 8.8 (8.4-10.2) mg/dL Total Bilirubin 0.7 (0.2-1.3) mg/dL AST 24 (17-59) U/L ALT 24 (4-49) U/L Alkaline Phosphatase 54 (38-126) U/L Total Protein 6.8 (6.3-8.2) g/dL Albumin 3.8 (3.5-5.0) g/dL Amylase 48 (30-110) U/L Lipase 60 (23-300) U/L Urine Color Urine Appearance (Clear) Urine pH (5.0-8.0) Ur Specific [place] (1.001-1.035) Urine Protein (Negative) Urine Glucose (UA) (Negative) Urine Ketones (Negative) Urine Blood (Negative) Urine Nitrite (Negative) Urine Bilirubin (Negative) Urine Urobilinogen (<2.0) mg/dL Ur Leukocyte Esterase (Negative) Urine RBC (0-5) /hpf Urine WBC (0-5) /hpf Urine Mucus (None) /hpf 05/14/24 05/14/24 Range/Units 09:01 09:24 WBC (3.8-10.6) k/uL RBC (4.30-5.90) m/uL Hgb (13.0-17.5) gm/dL Hct (39.0-53.0) % MCV (80.0-100.0) fL MCH (25.0-35.0) pg MCHC (31.0-37.0) g/dL RDW (11.5-15.5) % Plt Count (150-450) k/uL MPV Neutrophils % % Lymphocytes % % Monocytes % % Eosinophils % % Basophils % % Neutrophils # (1.3-7.7) k/uL Lymphocytes # (1.0-4.8) k/uL Monocytes # (0-1.0) k/uL Eosinophils # (0-0.7) k/uL Basophils # (0-0.2) k/uL PT (10.0-12.5) sec INR (<1.2) APTT (22.0-30.0) sec Sodium (137-145) mmol/L Potassium (3.5-5.1) mmol/L Chloride (98-107) mmol/L Carbon Dioxide (22-30) mmol/L Anion Gap mmol/L BUN (9-20) mg/dL Creatinine (0.66-1.25) mg/dL Est GFR (CKD-EPI)AfAm (>60 ml/min/1.73 sqM) Est GFR (CKD-EPI)NonAf (>60 ml/min/1.73 sqM) Glucose (74-99) mg/dL Plasma Lactic Acid Nitin 1.1 (0.7-2.0) mmol/L Calcium (8.4-10.2) mg/dL Total Bilirubin (0.2-1.3) mg/dL AST (17-59) U/L ALT (4-49) U/L Alkaline Phosphatase (38-126) U/L Total Protein (6.3-8.2) g/dL Albumin (3.5-5.0) g/dL Amylase (30-110) U/L Lipase (23-300) U/L Urine Color Yellow Urine Appearance Clear (Clear) Urine pH 6.0 (5.0-8.0) Ur Specific [place] 1.018 (1.001-1.035) Urine Protein 1+ H (Negative) Urine Glucose (UA) Negative (Negative) Urine Ketones Negative (Negative) Urine Blood Trace H (Negative) Urine Nitrite Negative (Negative) Urine Bilirubin Negative (Negative) Urine Urobilinogen <2.0 (<2.0) mg/dL Ur Leukocyte Esterase Negative (Negative) Urine RBC 4 (0-5) /hpf Urine WBC 1 (0-5) /hpf Urine Mucus Occasional H (None) /hpf Disposition Clinical Impression: Colitis, Hypomagnesemia Disposition: HOME SELF-CARE Condition: Fair Additional Instructions: start taking antibiotic in 4-5 days if symptoms worsen or do not improve. this is to cover diverticulitis if inflammation progressed. Prescriptions: Amoxic-Pot Clav 875-125Mg [Augmentin 875-125] 1 tab PO Q12HR 10 Days #20 tab Is patient prescribed a controlled substance at d/c from ED?: No Referrals: Laith Bee Jr, [Primary Care Provider] - 1-2 days Time of Disposition: 12:12
[2024-05-14] MEDS: LOPERAMIDE 2 MG CAP PO STA (12:23)
[2024-05-14 12:31] VITALS: BP 119/63; PULSE 54; RESP 18; TEMP 97.3
== END 2024-05-14 12:25 | disposition home or self-care (01) ==
LOC: EC 06:24
DX: K52.9 Noninfective gastroenteritis and colitis, unspecified (principal); E83.42 Hypomagnesemia
CPT/HCPCS: 36415; 80053; 82150; 83605; 83690; 85025; 85610; 85730; 81001; 74177; 99284; 96374; 96375; 96361 ×2; J2405; C9113; Q9967

== ENCOUNTER → 2024-06-08 | Outpatient (CLI) | payer MEDICARE ==
[2024-06-09 08:39] LABS: Cryptosporidium Antigen Negative (Negative)
== END | disposition home or self-care (01) ==
LOC: LABWHC1 09:38
PROVIDERS: ATTEND Family Medicine
DX: K52.9 Noninfective gastroenteritis and colitis, unspecified (principal)
CPT/HCPCS: 87045; 87046; 87328; 87329